=== PATIENT | male | born 1965 | race Hispanic/Latino ===

== ENCOUNTER 2019-07-19 10:07 | Day surgery (SDC) | payer BC ==
[~2019-07-19 10:07] MED LIST: IOHEXOL 300 MG/ML 50ML IV ONE
[2019-07-19] MEDS ORDERED: fentaNYL 100 MCG/2 ML INJ IV PRN (11:55)
--- NOTE | 2019-07-19 11:59 | Anesthesia Day of Surgery ---
Anesthesia Day of Surgery - Day of Surgery Patient Examined: Yes Patient H&P Reviewed: Yes Patient is NPO: Yes
--- NOTE | 2019-07-19 11:59 | Anesthesia Consultation ---
Anesthesia Consult and Med Hx Date of service: 07/19/19 - Airway Anesthetic Teeth Evaluation: Good ROM Head & Neck: Adequate Mental/Hyoid Distance: Inadequate (large cee - possible difficult mask ventilation) Mallampati Class: Class II Intubation Access Assessment: Possibly Difficult - Pulmonary Exam CTA: Yes - Cardiac Exam Cardiac Exam: RRR - Pre-Operative Health Status ASA Pre-Surgery Classification: ASA3 Proposed Anesthetic Plan: General - Pulmonary Hx Smoking: No Hx Asthma: Yes (mild intermittent - no recent inhaler use) Hx Sleep Apnea: Yes (compliant with CPAP) - Cardiovascular System Hx Hypertension: Yes (will give home dose amlodipine in preop) Hx Heart Attack/AMI: No - Central Nervous System CVA: No Hx Back Pain: Yes Hx Psychiatric Problems: Yes (chronic traumatic encephalopathy, depression) - Gastrointestinal Hx Gastroesophageal Reflux Disease: No - Endocrine Hx Renal Disease: No Hx Liver Disease: No Hx Insulin Dependent Diabetes: No Hx Non-Insulin Dependent Diabetes: No Hx Thyroid Disease: No - Other Systems Hx Obesity: Yes - Additional Comments Anesthesia Medical History Comments: Hx awareness under anesthesia many years ago. No issues with most recent anesthetic. Last dose adderoll 07/18.
[2019-07-19] MEDS ORDERED: MIDAZOLAM 2 MG/2 ML INJ IV NR (12:00)
[2019-07-19] MEDS ORDERED: LACTATED RINGERS 1,000 ML IV SCH (12:00)
[2019-07-19] MEDS ORDERED: ceFAZolin/STERILE WATER 2 GM/20 ML SYRINGE IV NR (12:37)
[2019-07-19] MEDS ORDERED: LIDOCAINE MPF (2%) 20 MG/1 ML VIAL 5 ML ONE (12:48)
[2019-07-19] MEDS ORDERED: fentaNYL 100 MCG/2 ML INJ ONE (12:48)
[2019-07-19] MEDS ORDERED: PROPOFOL 200 MG/20 ML VIAL IV ONE (12:48)
[2019-07-19] MEDS ORDERED: amLODIPine 10 MG TAB PO ONE ×2 (12:56)
[2019-07-19] MEDS ORDERED: KETOROLAC 30 MG/1 ML INJ ONE (13:44)
[2019-07-19] MEDS ORDERED: ONDANSETRON 4 MG/2 ML INJ ONE (13:44)
[2019-07-19] MEDS ORDERED: GLYCOPYRROLATE 0.4 MG/2 ML INJ IV ONE (14:31)
[2019-07-19 15:02] VITALS: BP 114/73
--- NOTE | 2019-07-19 15:48 | Fluoroscopy Report ---
INTRAOPERATIVE FLUOROSCOPY: ABDOMEN INDICATION: LT URETERAL STONE. TECHNIQUE: Intraoperative spot images were obtained during the procedure. FINDINGS: Limited fluoroscopic imaging demonstrates a previously placed unremarkable appearing left ureteral st ent with subsequent removal of the stent and left retrograde urography demonstrates no distinct abnor mality. Please see the procedure report for further details. Fluoroscopy Time: 1 minute, 54 seconds. Fluoroscopy Images: 6. Signer Name: Jose Farmer MD Signed: 07/19/2019 3:44 PM Workstation Name: [id number]
--- NOTE | 2019-07-19 17:42 | Short Stay Summary ---
Short Stay Documentation Date of service: 07/19/19 - History H&P: obtained from office - Allergies and Medications Current Medications: Allergies Sulfa (Sulfonamide Antibiotics) Allergy (Verified 07/10/19 11:53) Rash Home Medications Medication Instructions Recorded Confirmed Last Taken Type Allopurinol [Zyloprim] 300 mg PO QDAY 07/10/19 07/10/19 07/18/19 History Dextroamphetamine/Amphetamine 60 mg PO DAILY 07/10/19 07/10/19 07/18/19 History [Adderall] Donepezil [Aricept] 10 mg PO QDAY 07/10/19 07/10/19 07/18/19 History Fenofibrate [Tricor] 145 mg PO QDAY 07/10/19 07/10/19 07/18/19 History Gabapentin [Neurontin] 300 mg PO TID 07/10/19 07/10/19 07/18/19 History HYDROcodone/APAP 5-325 [Supply 1 each PO Q6HR PRN 07/10/19 07/10/19 07/18/19 History 5/325] Lisinopril [Zestril TAB] 10 mg PO QDAY 07/10/19 07/10/19 07/18/19 History QUEtiapine [SEROquel] 25 mg PO BID 07/10/19 07/10/19 07/18/19 History Tamsulosin [Flomax] 0.4 mg PO QDAY 07/10/19 07/10/19 07/18/19 History Terazosin [Hytrin] 1 mg PO DAILY 07/10/19 07/10/19 07/18/19 History Venlafaxine HCl [Effexor Xr] 150 mg PO DAILY 07/10/19 07/10/19 07/18/19 History amLODIPine [Norvasc] 5 mg PO DAILY 07/10/19 07/10/19 07/18/19 History valACYclovir [Valtrex] 500 mg PO DAILY 07/10/19 07/10/19 07/18/19 History - Brief post op/procedure progress note Date of procedure: 07/19/19 Pre-op diagnosis: left ureteral stone /stent Post-op diagnosis: same Procedure: left urs, laser, sbe, stent with string Anesthesia: GETA Findings: good vis Surgeon: ZACKERY LYNN Estimated blood loss: minimal Pathology: list Specimen disposition: to lab (stone) Condition: stable - Hospital course Hospital course: [facility] - Disposition Condition at discharge: Good Disposition: DC-01 TO HOME OR SELFCARE Short Stay Discharge Plan Activity: advance as tolerated Additional Instructions: CALL TO SCHEDULE FOLLOW-UP APPOINTMENT Follow up with: ZACKERY LYNN MD [Staff Physician] - 14 Days
--- NOTE | 2019-07-19 19:15 | Post Anesthesia Evaluation ---
- Post Anesthesia Evaluation Patient Participated: Yes Airway Patent: Yes Stable Respiratory Function: Yes Nausea/Vomiting: No Temp > 96.8F: Yes Pain Manageable: Yes Adequeate Hydration: Yes Anesthesia Complications: No
--- NOTE | 2019-08-07 15:39 | Operative Report ---
PREOPERATIVE DIAGNOSIS: Left ureteral stone with stent. POSTOPERATIVE DIAGNOSIS: Left ureteral stone with stent. PROCEDURE: Left ureteroscopy, laser stone basket extraction, stent with string. ANESTHESIA: General. FINDINGS: Good visualization. SURGEON: Remington Dunbar MD ESTIMATED BLOOD LOSS: Minimal. PATHOLOGY: Stones. CONDITION: Stable. CLINICAL INDICATIONS: The patient counseled on RCBA, antibiotics, sequential compression devices. The patient had a stent placed at [facility], was scheduled for this procedure for the treatment of the stone electively. DESCRIPTION OF PROCEDURE: The patient was transferred to OR suite in supine position, anesthesia, dorsal lithotomy, prepped and draped in standard fashion. A 22-Hebrew scope passed. Left stent was visualized, a 0.035 Glidewire was passed adjacent to the stent, passed up to the ureter under fluoroscopic visualization in the renal pelvis. Stent grasped, was pulled out intact. Next, rigid ureteroscope was passed, cannulated the left ureter, passed the scope up to the stone. Holmium laser passed. We fragmented the stone into smaller and smaller pieces. At the end of the procedure, there were fragment pieces and there was decreased density. Pieces were removed with triceps forceps, brought from the bladder. These specimens were sent for pathology later. Once the stone was essentially fragmented to less than 1 mm pieces with no significant residual debris, scope passed more proximally. No significant stones. Scope withdrawn, wire backloaded on the cystoscope. A 6-Hebrew double-J stent was passed over the wire under direct and fluoroscopic visualization. When the wire and string was removed, there was nice proximal J, nice distal J within the bladder, bladder drained. The patient awakened and transferred to PACU in good in stable condition. ADDENDUM: Exam under anesthesia, bilateral testicles, no masses. Digital rectal exam, no nodules. The patient was awakened and transferred to PACU in good and stable condition. JOB# [id number] ATS/NTS
== END 2019-07-19 15:40 | disposition home or self-care (01) ==
LOC: OR 10:07
PROVIDERS: ATTEND Urology
DX: N20.1 Calculus of ureter (principal); G62.9 Polyneuropathy, unspecified; E78.00 Pure hypercholesterolemia, unspecified; I10 Essential (primary) hypertension; J45.909 Unspecified asthma, uncomplicated; G47.30 Sleep apnea, unspecified; M19.90 Unspecified osteoarthritis, unspecified site; F32.9 Major depressive disorder, single episode, unspecified; Z88.2 Allergy status to sulfonamides; Z79.899 Other long term (current) drug therapy; Z98.890 Other specified postprocedural states
CPT/HCPCS: 36415; 52356; 74420; 82365; 88300; C1726; C1758; C1769; C2617; J0690; J1885; J2405; J2704; J3010; J7120; Q9967; 88302